=== PATIENT | female | born 1965 | race Caucasian/White ===

== ENCOUNTER 2017-10-13 18:19 | Emergency (ER) | payer OTHER ==
[2017-10-13 19:36] VITALS: BP 123/77; PULSE 81; RESP 20; TEMP 98; O2SAT 100
--- NOTE | 2017-10-13 21:24 | C.PDOC ---
History Of Present Illness 52 year old female presents to the ER with a complaint of lower back that radiates to the right buttock and right leg for the past 2 weeks. Patient has been taking ibuprofen with no relief, she has an appointment with her PMD on , however, she could not take the pain which prompted visit. Denies dysuria , hematuria, incontinence, weakness, or numbness. Time Seen by Provider: 10/13/17 20:30 Chief Complaint (Nursing): Back Pain History Per: Patient History/Exam Limitations: no limitations Onset/Duration Of Symptoms: Days Current Symptoms Are (Timing): Still Present Quality Of Discomfort: Unable To Describe Previous Symptoms: None Associated Symptoms: None Exacerbating Factor(s): Nothing Recent travel outside of the [place]: No Past Medical History Reviewed: Historical Data, Nursing Documentation, Vital Signs Vital Signs: Last Vital Signs Temp 98 F 10/13/17 19:34 Pulse 81 10/13/17 19:34 Resp 20 10/13/17 19:34 BP 123/77 10/13/17 19:34 Pulse Ox 100 10/13/17 21:24 Family History: States: Unknown Family Hx - Social History Hx Alcohol Use: No Hx Substance Use: No - Immunization History Hx Tetanus Toxoid Vaccination: No Hx Influenza Vaccination: No Hx Pneumococcal Vaccination: No Review Of Systems Genitourinary: Negative for: Dysuria, Incontinence, Hematuria Musculoskeletal: Positive for: Back Pain, Leg Pain Neurological: Negative for: Weakness, Numbness Physical Exam - Physical Exam Appears: Non-toxic, No Acute Distress Skin: Normal Color, Warm, Dry Head: Atraumatic, Normacephalic Eye(s): bilateral: Normal Inspection Gastrointestinal/Abdominal: Soft, No Tenderness Back: No Vertebral Tenderness, Paraspinal Tenderness (Right lumbar), Straight Leg Raising (Negative) Extremity: Normal ROM (x4) Neurological/Psych: Oriented x3, Normal Speech, Normal Motor, Normal Sensation Gait: Steady ED Course And Treatment O2 Sat by Pulse Oximetry: 100 (Room air) Pulse Ox Interpretation: Normal Progress Note: Toradol administered. Patient reports improvement of pain, she is able to ambulate in the ER without any difficulty or pain. Will discharge home with Rx and instructions to follow up with PMD as scheduled. Disposition Counseled Patient/Family Regarding: Diagnosis, Need For Followup, Rx Given - Disposition Referrals: Татьяна Vasquez MD [Medical Doctor] - Disposition: HOME/ ROUTINE Disposition Time: 21:20 Condition: STABLE Additional Instructions: Take meds as prescribed Follow up with PMD as scheduled Return to ER if worse Prescriptions: Cyclobenzaprine [Cyclobenzaprine HCl] 10 mg PO HS #10 tab Naproxen [Naprosyn] 1 tab PO BID PRN #20 tab PRN Reason: Pain Instructions: Sciatica (ED) Forms: [employer] (Macedonian) - Clinical Impression Clinical Impression: Sciatica - PA / TOOL ROOM ATTENDANT / Resident Statement MD/DO has reviewed & agrees with the documentation as recorded. - Scribe Statement The provider has reviewed the documentation as recorded by the Scribe Luan Concepcion All medical record entries made by the Naiibpaty were at my direction and personally dictated by me. I have reviewed the chart and agree that the record accurately reflects my personal performance of the history, physical exam, medical decision making, and the department course for this patient. I have also personally directed, reviewed, and agree with the discharge instructions and disposition.
== END 2017-10-13 21:57 | disposition home or self-care (01) ==
LOC: C.ER 18:19
DX: M54.31 Sciatica, right side (principal)
CPT/HCPCS: 96372; 99282; J1885